=== PATIENT | female | born 1965 | race Caucasian/White ===

== ENCOUNTER 2016-10-07 13:37 | Emergency (ER) | payer BC ==
[~2016-10-07 13:37] MED LIST: ANTIVERT25 MG PO; FARXIGA10 MG PO; FLEXERIL 10 MG10 MG PO; GLUCERNA237 ML PO; GLUCOPHAGE 500500 MG PO; MEDROL4 MG PO; PERCOCET 5-3251 EACH PO; PHENERGAN 25 MG25 M1 PO; SYNTHROID137 MCG PO; TOPROL XL100 MG PO; TYLENOL 325MG325 MG PO; VANCOMYCIN HCL125 MG PO; XIGDUO XR 10 M1 EACH PO; ZEGERID 40 MG1 EACH PO
== END 2016-10-07 17:49 | disposition left against medical advice (07) ==
LOC: ER1 13:37
DX: Z53.21 Procedure and treatment not carried out due to patient leaving prior to being seen by health care provider (principal)

== ENCOUNTER 2016-10-08 11:46 | Emergency (ER) | payer BC ==
[2016-10-08 15:05] LABS: HEMOGLOBIN 14.9 gm/dl (12.3-15.3); RED BLOOD COUNT 4.64 M/UL (4.00-5.10); WHITE BLOOD COUNT 9.3 K/UL (4.5-11.0)
[2016-10-08 15:23] LABS: BUN/CREATININE RATIO 12 (0-10)
== END 2016-10-08 16:05 | disposition home or self-care (01) ==
LOC: ER1 11:46
PROVIDERS: Family Medicine
DX: R10.12 Left upper quadrant pain (principal); R11.0 Nausea
CPT/HCPCS: 36415; 74022; 80053; 81001; 82150; 83690; 85025; 87086; 96374; 96375; 99284; J2405; J2930

== ENCOUNTER 2016-10-16 13:25 | Emergency (ER) | payer BC ==
[2016-10-16 14:56] LABS: HEMOGLOBIN 14.3 gm/dl (12.3-15.3); RED BLOOD COUNT 4.48 M/UL (4.00-5.10); WHITE BLOOD COUNT 8.2 K/UL (4.5-11.0)
[2016-10-16 15:12] LABS: BUN/CREATININE RATIO 13 (0-10)
== END 2016-10-16 16:20 | disposition home or self-care (01) ==
LOC: ER1 13:25
PROVIDERS: Family Medicine
DX: J06.9 Acute upper respiratory infection, unspecified (principal); B34.9 Viral infection, unspecified; E11.65 Type 2 diabetes mellitus with hyperglycemia; R11.0 Nausea; Z88.1 Allergy status to other antibiotic agents; Z88.2 Allergy status to sulfonamides; Z79.84 Long term (current) use of oral hypoglycemic drugs; Z79.899 Other long term (current) drug therapy
CPT/HCPCS: 36415; 71020; 80053; 81001; 85025; 96361; 96374; 99283; J2405; J2550; J7030

== ENCOUNTER 2017-01-06 18:04 | Emergency (ER) | payer BC ==
[2017-01-06 21:35] LABS: HEMOGLOBIN 14.1 gm/dl (12.3-15.3); RED BLOOD COUNT 4.46 M/UL (4.00-5.10); WHITE BLOOD COUNT 10.5 K/UL (4.5-11.0)
[2017-01-06 21:56] LABS: BUN/CREATININE RATIO 14 (0-10)
== END 2017-01-06 23:23 | disposition home or self-care (01) ==
LOC: ER1 18:04
PROVIDERS: Physician Assistant
DX: K50.90 Crohn's disease, unspecified, without complications (principal); K76.0 Fatty (change of) liver, not elsewhere classified; E11.9 Type 2 diabetes mellitus without complications; Z90.49 Acquired absence of other specified parts of digestive tract; Z88.1 Allergy status to other antibiotic agents; Z88.2 Allergy status to sulfonamides; Z88.6 Allergy status to analgesic agent; Z88.8 Allergy status to other drugs, medicaments and biological substances; Z79.4 Long term (current) use of insulin; Z85.9 Personal history of malignant neoplasm, unspecified; Z79.84 Long term (current) use of oral hypoglycemic drugs; Z79.899 Other long term (current) drug therapy
CPT/HCPCS: 36415; 80053; 83690; 84484; 85025; 86140; 93005; 96374; 96375; 99284; C9113; J2270; J2550; J7050; Q9962

== ENCOUNTER 2017-01-16 13:38 | Observation (INO) | payer BC ==
[~2017-01-16] VITALS: Ht 152.4 cm; Wt 89.4 kg
[2017-01-16 14:26] LABS: HEMOGLOBIN 14.8 gm/dl (12.3-15.3); RED BLOOD COUNT 4.73 M/UL (4.00-5.10); WHITE BLOOD COUNT 16.3 K/UL (4.5-11.0)
[2017-01-16 14:46] LABS: BUN/CREATININE RATIO 15 (0-10)
[2017-01-16] MEDS ORDERED: GLUCOPHAGE 500500 MG PO (21:42)
[2017-01-16] MEDS ORDERED: NOVOLOG100 UNIT/1 SQ (21:44)
[2017-01-16] MEDS ORDERED: KENALOG IN ORABA5 GM TOP (21:45)
[2017-01-16] MEDS ORDERED: HYDROCORTISON-A10 ML AD (21:46)
[2017-01-16 21:52] LABS: BUN/CREATININE RATIO 14 (0-10)
[2017-01-17 03:48] LABS: BUN/CREATININE RATIO 16 (0-10)
== END 2017-01-17 19:00 | disposition home or self-care (01) ==
LOC: ER1 13:38 → M/S 16:44 → ZEROF 16:44 → M/S 20:40
PROVIDERS: Emergency Medicine; ADMIT Family Medicine
DX: R07.89 Other chest pain (principal); E11.65 Type 2 diabetes mellitus with hyperglycemia; K50.90 Crohn's disease, unspecified, without complications; K21.9 Gastro-esophageal reflux disease without esophagitis; E66.9 Obesity, unspecified; Z88.1 Allergy status to other antibiotic agents; Z88.2 Allergy status to sulfonamides; Z88.5 Allergy status to narcotic agent; Z88.8 Allergy status to other drugs, medicaments and biological substances; Z79.4 Long term (current) use of insulin; Z90.49 Acquired absence of other specified parts of digestive tract; Z90.710 Acquired absence of both cervix and uterus
CPT/HCPCS: ECHO; 36415; 71010; 78452; 80048; 80053; 80061; 81001; 82550; 82553; 82962; 83874; 84484; 85025; 93005; 93017; 93306; 96374; 96375; 96376; 99285; A9502; G0378; J1200; J1650; J2270; J2765; J2785; J7030

== ENCOUNTER → 2020-08-03 | Outpatient (CLI) | payer OTHER ==
[~2020-08-03] MED LIST changes: +ASPIRIN325 MG PO; +BALSALAZIDE DI750 MG PO; +BENTYL 10MG CAP10 MG PO; +BENTYL 20MG TAB20 MG PO; +CELEBREX400 MG PO; +CYCLOBENZAPRINE5 MG PO; +HUMALOG; +HYDROCORTISON-A10 ML AD; +IBUPROFEN600 MG PO; +JANUVIA25 MG PO; +KENALOG 0.5% CR15 GM EXT; +KENALOG IN ORABA5 GM TOP; +LEVEMIR100 UNIT/1 SQ; +LISINOPRIL10 MG PO; +LODINE CAP 300300 MG PO; +NOVOLOG100 UNIT/1 SQ; +PERCOCET 5/325 T1 EA PO; +PREDNISONE20 MG PO; +SYNTHROID150 MCG PO; +TYLENOL 500 MG500 MG PO; +ZANAFLEX4 MG PO; +ZOFRAN 4 MG TAB4 MG PO; +ZOFRAN ODT 4 MG4 MG PO; +ZOFRAN4 MG PO
[2020-08-03 11:06] LABS: HEMOGLOBIN 13.9 gm/dl (12.3-15.3); RED BLOOD COUNT 4.37 M/UL (4.00-5.10); WHITE BLOOD COUNT 6.9 K/UL (4.5-11.0)
[2020-08-03 11:22] LABS: BUN/CREATININE RATIO 11 (0-10)
[2020-08-04 09:13] LABS: CREATININE, URINE 284.8 mg/dL (Not Estab.)
== END ==
LOC: LAB 10:07
PROVIDERS: Nurse Practitioner Family
DX: E11.9 Type 2 diabetes mellitus without complications (principal); E55.9 Vitamin D deficiency, unspecified; E53.8 Deficiency of other specified B group vitamins; E78.5 Hyperlipidemia, unspecified
CPT/HCPCS: 36415; 80053; 80061; 82043; 82570; 82607; 84443; 85025

== ENCOUNTER 2020-08-23 15:30 | Emergency (ER) | payer OTHER ==
[~2020-08-23 15:30] MED LIST changes: -CELEBREX400 MG PO; -CYCLOBENZAPRINE5 MG PO; -ZOFRAN 4 MG TAB4 MG PO
[2020-08-23 19:57] LABS: HEMOGLOBIN 12.9 gm/dl (12.3-15.3); RED BLOOD COUNT 4.06 M/UL (4.00-5.10)
[2020-08-23 20:09] LABS: BUN/CREATININE RATIO 12 (0-10)
[2020-08-24] MEDS ORDERED: CYCLOBENZAPRINE5 MG PO (03:28)
[2020-08-24] MEDS ORDERED: CELEBREX400 MG PO (03:28)
[2020-08-24] MEDS ORDERED: ZOFRAN 4 MG TAB4 MG PO (03:28)
== END 2020-08-24 04:00 | disposition home or self-care (01) ==
LOC: ER1 15:30
PROVIDERS: Physician Assistant
DX: R07.9 Chest pain, unspecified (principal); R10.9 Unspecified abdominal pain; R06.02 Shortness of breath; I10 Essential (primary) hypertension; E11.9 Type 2 diabetes mellitus without complications; Z87.19 Personal history of other diseases of the digestive system
CPT/HCPCS: 71046; 80053; 82550; 82553; 83605; 83690; 83874; 84484; 85025; 85379; 93005; 96374; 99285; J2270; J2405; J2550; J3010; Q9967

== ENCOUNTER → 2021-03-16 | Outpatient (CLI) | payer OTHER ==
[~2021-03-16] MED LIST changes: +CELEBREX400 MG PO; +CYCLOBENZAPRINE5 MG PO; +ZOFRAN 4 MG TAB4 MG PO
[2021-03-16 13:49] LABS: HEMOGLOBIN 13.4 gm/dl (12.3-15.3); RED BLOOD COUNT 4.34 M/UL (4.00-5.10); WHITE BLOOD COUNT 8.6 K/UL (4.5-11.0)
[2021-03-16 14:05] LABS: BUN/CREATININE RATIO 12 (0-10)
[2021-03-17 08:13] LABS: CREATININE, URINE 118.1 mg/dL (Not Estab.)
== END ==
LOC: LAB 11:22
PROVIDERS: Nurse Practitioner Family
DX: E78.5 Hyperlipidemia, unspecified (principal); E11.9 Type 2 diabetes mellitus without complications; E53.8 Deficiency of other specified B group vitamins; E55.9 Vitamin D deficiency, unspecified
CPT/HCPCS: 36415; 80053; 80061; 82043; 82570; 82607; 84443; 85025

== ENCOUNTER → 2021-09-28 | Outpatient (CLI) | payer BC, OTHER ==
[2021-09-28 13:53] LABS: HEMOGLOBIN 14.4 gm/dl (12.3-15.3); RED BLOOD COUNT 4.51 M/UL (4.00-5.10); WHITE BLOOD COUNT 9.3 K/UL (4.5-11.0)
[2021-09-28 14:23] LABS: BUN/CREATININE RATIO 15 (0-10)
== END ==
LOC: CT 13:00
PROVIDERS: Nurse Practitioner Family
DX: R10.9 Unspecified abdominal pain (principal); K50.90 Crohn's disease, unspecified, without complications
CPT/HCPCS: 36415; 80053; 85025; 85652; 86140; Q9967

== ENCOUNTER 2021-10-01 12:00 | Emergency (ER) | payer BC, OTHER ==
[2021-10-01 13:18] LABS: HEMOGLOBIN 14.5 gm/dl (12.3-15.3); RED BLOOD COUNT 4.56 M/UL (4.00-5.10); WHITE BLOOD COUNT 11.6 K/UL (4.5-11.0)
[2021-10-01 13:47] LABS: BUN/CREATININE RATIO 17 (0-10)
== END 2021-10-01 17:30 | disposition home or self-care (01) ==
LOC: ER1 12:00
PROVIDERS: Nurse Practitioner
DX: R10.9 Unspecified abdominal pain (principal); R10.814 Left lower quadrant abdominal tenderness; R10.817 Generalized abdominal tenderness; R19.7 Diarrhea, unspecified; Z20.822 Contact with and (suspected) exposure to COVID-19; R00.2 Palpitations; E11.9 Type 2 diabetes mellitus without complications; E78.5 Hyperlipidemia, unspecified; I10 Essential (primary) hypertension; Z90.710 Acquired absence of both cervix and uterus; Z88.2 Allergy status to sulfonamides; Z88.5 Allergy status to narcotic agent
CPT/HCPCS: 0240U; 71045; 80053; 81001; 82150; 82550; 82553; 83690; 84484; 85025; 87086; 96374; 96375; 99284; J1170; J2405; Q9967

== ENCOUNTER 2021-10-31 15:51 | Emergency (ER) | payer BC, OTHER ==
[2021-10-31 17:08] LABS: HEMOGLOBIN 13.7 gm/dl (12.3-15.3); RED BLOOD COUNT 4.23 M/UL (4.00-5.10); WHITE BLOOD COUNT 10.8 K/UL (4.5-11.0)
[2021-10-31 17:33] LABS: BUN/CREATININE RATIO 14 (0-10)
== END 2021-10-31 19:56 | disposition home or self-care (01) ==
LOC: ER1 15:51
PROVIDERS: Physician Assistant
DX: R10.84 Generalized abdominal pain (principal); R19.7 Diarrhea, unspecified; R10.817 Generalized abdominal tenderness; E10.9 Type 1 diabetes mellitus without complications; Z90.710 Acquired absence of both cervix and uterus; Z90.49 Acquired absence of other specified parts of digestive tract
CPT/HCPCS: 80053; 81001; 83690; 85025; 85652; 86140; 96374; 96375; 99284; J1170; J2405; J7030; Q9967

== ENCOUNTER 2022-02-25 15:10 | Emergency (ER) | payer BC, OTHER ==
[2022-02-25 16:11] LABS: HEMOGLOBIN 13.7 gm/dl (12.3-15.3); RED BLOOD COUNT 4.28 M/UL (4.00-5.10); WHITE BLOOD COUNT 9.1 K/UL (4.5-11.0)
[2022-02-25 16:30] LABS: BUN/CREATININE RATIO 20 (0-10)
[2022-02-25] MEDS ORDERED: ZOFRAN ODT 4 MG4 MG PO (19:02)
== END 2022-02-25 20:10 | disposition home or self-care (01) ==
LOC: ER1 15:10
PROVIDERS: Emergency Medicine
DX: R10.9 Unspecified abdominal pain (principal); R19.7 Diarrhea, unspecified; R42 Dizziness and giddiness; I10 Essential (primary) hypertension; R11.2 Nausea with vomiting, unspecified; Z20.822 Contact with and (suspected) exposure to COVID-19; E11.9 Type 2 diabetes mellitus without complications
CPT/HCPCS: 70450; 80053; 81001; 82550; 82553; 83690; 84484; 85025; 96374; 96375; 99284; J1170; J2270; J2405; Q9967; U0002

== ENCOUNTER 2022-03-01 17:19 | Emergency (ER) | payer BC, OTHER ==
[2022-03-01 20:59] LABS: HEMOGLOBIN 13.9 gm/dl (12.3-15.3); RED BLOOD COUNT 4.29 M/UL (4.00-5.10); WHITE BLOOD COUNT 10.9 K/UL (4.5-11.0)
[2022-03-01 21:28] LABS: BUN/CREATININE RATIO 11 (0-10)
[2022-03-01] MEDS ORDERED: PHENERGAN 12.12.5 M1 PO (22:23)
[2022-03-01] MEDS ORDERED: TRANSDERM-SCOP1 EACH TOP (22:23)
[2022-03-01] MEDS ORDERED: PHENERGAN 12.12.5 MG PR (22:23)
== END 2022-03-01 23:50 | disposition home or self-care (01) ==
LOC: ER1 17:19
PROVIDERS: Preventive Medicine Occupational Medicine
DX: A04.72 Enterocolitis due to Clostridium difficile, not specified as recurrent (principal)
CPT/HCPCS: 80053; 83690; 85025; 85652; 86140; 96374; 96375; 99284; J1170; J2405; J2550